=== PATIENT | male | born 1970 | race Caucasian/White ===

== ENCOUNTER 2018-06-26 15:31 | Inpatient (IN) | payer OTHER ==
[2018-06-26 17:19] VITALS: BMI 20.5
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
[2018-06-26] MEDS ORDERED: MAG HYDROX/AL HYDROX/SIMETH 30 ML UNIT-DOSE CUP PO PRN (20:01)
[2018-06-26] MEDS ORDERED: MAGNESIUM CITRATE 300 ML BOTTLE PO PRN (20:01)
[2018-06-26] MEDS ORDERED: NICOTINE POLACRILEX 2 MG GUM BUC PRN (20:01)
[2018-06-26] MEDS ORDERED: IBUPROFEN 400 MG TABLET (FP) PO PRN (20:01)
[2018-06-26] MEDS ORDERED: MENTHOL/PHENOL 1 EACH UD MM PRN (20:01)
[2018-06-26] MEDS ORDERED: ACETAMINOPHEN 325 MG TABLET (FP) PO PRN (20:01)
[2018-06-26] MEDS ORDERED: METHADONE HCL 10 MG TABLET (FOR DETOX USE ONLY) PO ONE ×2 (20:01→23:00)
[2018-06-26] MEDS ORDERED: MAGNESIUM HYDROX 2400MG/30ML ORAL SUSPENSION 30 ML CUP PO PRN (20:01)
[2018-06-26] MEDS ORDERED: LOPERAMIDE HCL 2 MG CAPSULE PO PRN (20:01)
[2018-06-26] MEDS: THIAMINE HCL 100 MG TABLET (FP) PO SCH (22:00)
[2018-06-26] MEDS: diazePAM 5 MG TABLET PO PRN (22:00)
[2018-06-27 02:10] LABS: URINE APPEARANCE TURBID; URINE BILIRUBIN NEGATIVE (<2.0 mg/dL); URINE COLOR YELLOW; URINE GLUCOSE (UA) NEGATIVE (NEGATIVE); URINE KETONE NEGATIVE (NEGATIVE); URINE LEUK ESTERASE NEGATIVE (NEGATIVE); URINE NITRITE NEGATIVE (NEGATIVE); URINE PROTEIN NEGATIVE (NEGATIVE); URINE UROBILINOGEN NEGATIVE mg/dL (0.2-1.0)
[2018-06-27] MEDS: diazePAM 5 MG TABLET PO PRN ×3 (09:51→20:26)
[2018-06-27] MEDS: PRENATAL VITAMINS W/ FOLIC ACID TABLET (FP) PO SCH (09:52)
[2018-06-27] MEDS: NICOTINE 21 MG/24 HOURS TOPICAL PATCH TD SCH (09:52)
[2018-06-27] MEDS ORDERED: METHADONE HCL 10 MG TABLET (FOR DETOX USE ONLY) PO ONE (10:00)
[2018-06-27 10:22] LABS: HEMATOCRIT 37.7 % (35.4-49); HEMOGLOBIN 13.2 GM/dL (11.7-16.9); MCH 30.5 pg (25.7-33.7); MEAN PLT VOLUME 8.2 fl (7.5-11.1); PLATELET COUNT 331 K/MM3 (134-434); RBC 4.33 M/mm3 (4.00-5.60); RDW 13.5 % (11.9-15.9); WHITE BLOOD COUNT 6.4 K/mm3 (4.0-10.0)
[2018-06-27 10:35] LABS: ALBUMIN 3.1 g/dl (3.4-5.0); ALK PHOS 76 U/L (45-117); ANION GAP 8 MMOL/L (8-16); BILIRUBIN,TOTAL 0.2 mg/dL (0.2-1); BLOOD UREA NITROGEN 25 mg/dL (7-18); CALCIUM 8.6 mg/dL (8.5-10.1); CHLORIDE 104 mmol/L (98-107); CO2 31 mmol/L (21-32); GLUCOSE,RANDOM 85 mg/dL (74-106); POTASSIUM 4.3 mmol/L (3.5-5.1); SGOT/AST 18 U/L (15-37); SGPT/ALT 25 U/L (13-61); SODIUM 143 mmol/L (136-145); TOT PROT 6.7 g/dl (6.4-8.2)
--- NOTE | 2018-06-27 11:20 | PN ---
BHS COWS - Scale Resting Pulse: 0= DE 80 or Below Sweatin= Chills/Flushing Restless Observation: 1= Difficult to Sit Still Pupil Size: 1= Pupils >than Normal Bone or Joint Aches: 2= Severe Diffuse Aches Runny Nose/ Eye Tearin= Nasal Congestion GI Upset > 30mins: 1= Stomach Cramp Tremor Observation of Outstretched Hands: 1= Tremor Galva, Not Seen Yawning Observation: 1= 1-2x During Session Anxiety or Irritability: 2=Irritable/Anxious Goose Flesh Skin: 0=Smooth Skin COWS Score: 11 S Progress Note (SOAP) Subjective: sweat tremor restlessness irritable body aches joints pain Objective: 06/27/18 11:18 Vital Signs Temperature 96.1 F L 06/27/18 09:46 Pulse Rate 70 06/27/18 09:46 Respiratory Rate 18 06/27/18 09:46 Blood Pressure 98/67 06/27/18 09:46 O2 Sat by Pulse Oximetry (%) Laboratory Last Values WBC 6.4 K/mm3 (4.0-10.0) 06/27/18 07:50 RBC 4.33 M/mm3 (4.00-5.60) 06/27/18 07:50 Hgb 13.2 GM/dL (11.7-16.9) 06/27/18 07:50 Hct 37.7 % (35.4-49) 06/27/18 07:50 MCV 87.0 fl (80-96) 06/27/18 07:50 MCH 30.5 pg (25.7-33.7) 06/27/18 07:50 MCHC 35.0 g/dl (32.0-35.9) 06/27/18 07:50 RDW 13.5 % (11.9-15.9) 06/27/18 07:50 Plt Count 331 K/MM3 (134-434) 06/27/18 07:50 MPV 8.2 fl (7.5-11.1) 06/27/18 07:50 Sodium 143 mmol/L (136-145) 06/27/18 07:50 Potassium 4.3 mmol/L (3.5-5.1) 06/27/18 07:50 Chloride 104 mmol/L (98-107) 06/27/18 07:50 Carbon Dioxide 31 mmol/L (21-32) 06/27/18 07:50 Anion Gap 8 MMOL/L (8-16) 06/27/18 07:50 BUN 25 mg/dL (7-18) H 06/27/18 07:50 Creatinine 1.0 mg/dL (0.55-1.3) 06/27/18 07:50 Creat Clearance w eGFR > 60 (>60) 06/27/18 07:50 Random Glucose 85 mg/dL (74-106) 06/27/18 07:50 Calcium 8.6 mg/dL (8.5-10.1) 06/27/18 07:50 Total Bilirubin 0.2 mg/dL (0.2-1) 06/27/18 07:50 AST 18 U/L (15-37) 06/27/18 07:50 ALT 25 U/L (13-61) 06/27/18 07:50 Alkaline Phosphatase 76 U/L (45-117) 06/27/18 07:50 Total Protein 6.7 g/dl (6.4-8.2) 06/27/18 07:50 Albumin 3.1 g/dl (3.4-5.0) L 06/27/18 07:50 Urine Color Yellow 06/26/18 22:52 Urine Appearance Turbid 06/26/18 22:52 Urine pH 5.0 (5.0-8.0) 06/26/18 22:52 Ur Specific [place] 1.029 (1.010-1.035) 06/26/18 22:52 Urine Protein Negative (NEGATIVE) 06/26/18 22:52 Urine Glucose (UA) Negative (NEGATIVE) 06/26/18 22:52 Urine Ketones Negative (NEGATIVE) 06/26/18 22:52 Urine Blood Negative (NEGATIVE) 06/26/18 22:52 Urine Nitrite Negative (NEGATIVE) 06/26/18 22:52 Urine Bilirubin Negative (<2.0 mg/dL) 06/26/18 22:52 Urine Urobilinogen Negative mg/dL (0.2-1.0) 06/26/18 22:52 Ur Leukocyte Esterase Negative (NEGATIVE) 06/26/18 22:52 lab noted Assessment: 06/27/18 11:19 withdrawal sx Plan: continue detox increase oral fluid to 2 L daily
[2018-06-27] MEDS: PATIENT'S OWN MEDICATION (NON-FORMULARY) (Glecaprevir/Pibrentasvir [Mavyret 100-40 Mg Tabl PO SCH ×2 (13:06→17:17)
[2018-06-27] MEDS: MELATONIN 5 MG TABLETS PO PRN (22:19)
[2018-06-27] MEDS: THIAMINE HCL 100 MG TABLET (FP) PO SCH (22:19)
[2018-06-28] MEDS ORDERED: METHADONE HCL 5 MG TABLET (FOR DETOX USE ONLY) PO ONE (10:00)
[2018-06-28] MEDS: PRENATAL VITAMINS W/ FOLIC ACID TABLET (FP) PO SCH (10:30)
[2018-06-28] MEDS: diazePAM 5 MG TABLET PO PRN ×2 (10:30→22:12)
[2018-06-28] MEDS: NICOTINE 21 MG/24 HOURS TOPICAL PATCH TD SCH (10:31)
--- NOTE | 2018-06-28 11:55 | PN ---
BHS COWS - Scale Resting Pulse: 0= DE 80 or Below Sweatin= Chills/Flushing Restless Observation: 1= Difficult to Sit Still Pupil Size: 2= Moderately Dilated Bone or Joint Aches: 2= Severe Diffuse Aches Runny Nose/ Eye Tearin= None GI Upset > 30mins: 1= Stomach Cramp Tremor Observation of Outstretched Hands: 0= None Yawning Observation: 0= None Anxiety or Irritability: 2=Irritable/Anxious Goose Flesh Skin: 0=Smooth Skin COWS Score: 9 BHS Progress Note (SOAP) Subjective: PATIENT C/O CONSTIPATION, HOT/COLD FLASHES, SWEATING, ANXIETY AND RESTLESSNESS. Objective: 06/28/18 11:42 Vital Signs Temperature 97.0 F L 06/28/18 10:01 Pulse Rate 70 06/28/18 10:01 Respiratory Rate 19 06/28/18 10:01 Blood Pressure 100/63 06/28/18 10:01 O2 Sat by Pulse Oximetry (%) Laboratory Tests 06/26/18 06/27/18 06/27/18 22:52 07:50 07:50 WBC 6.4 RBC 4.33 Hgb 13.2 Hct 37.7 MCV 87.0 MCH 30.5 MCHC 35.0 RDW 13.5 Plt Count 331 MPV 8.2 Sodium Potassium Chloride Carbon Dioxide Anion Gap BUN Creatinine Creat Clearance w eGFR Random Glucose Calcium Total Bilirubin AST ALT Alkaline Phosphatase Total Protein Albumin Urine Color Yellow Urine Appearance Turbid Urine pH 5.0 Ur Specific [place] 1.029 Urine Protein Negative Urine Glucose (UA) Negative Urine Ketones Negative Urine Blood Negative Urine Nitrite Negative Urine Bilirubin Negative Urine Urobilinogen Negative Ur Leukocyte Esterase Negative RPR Titer HIV 1&2 Antibody Screen Negative HIV P24 Antigen Negative 06/27/18 06/27/18 07:50 07:50 WBC RBC Hgb Hct MCV MCH MCHC RDW Plt Count MPV Sodium 143 Potassium 4.3 Chloride 104 Carbon Dioxide 31 Anion Gap 8 BUN 25 H Creatinine 1.0 Creat Clearance w eGFR > 60 Random Glucose 85 Calcium 8.6 Total Bilirubin 0.2 AST 18 ALT 25 Alkaline Phosphatase 76 Total Protein 6.7 Albumin 3.1 L Urine Color Urine Appearance Urine pH Ur Specific [place] Urine Protein Urine Glucose (UA) Urine Ketones Urine Blood Urine Nitrite Urine Bilirubin Urine Urobilinogen Ur Leukocyte Esterase RPR Titer Nonreactive HIV 1&2 Antibody Screen HIV P24 Antigen PE: SKIN WARM, +FACIAL MOISTURE ALERT AND ORIENTED X 3 EXT FULL ROM, AMB AD ОЛЬГА ANXIOUS/RESTLESS Assessment: 06/28/18 11:55 WITHDRAWAL SX Plan: CONTINUE DETOX ENCOURAGE ORAL FLUIDS CONTINUE TO MONITOR
[2018-06-28] MEDS: PATIENT'S OWN MEDICATION (NON-FORMULARY) (Glecaprevir/Pibrentasvir [Mavyret 100-40 Mg Tabl PO SCH (18:49)
[2018-06-28] MEDS: MELATONIN 5 MG TABLETS PO PRN (22:12)
[2018-06-28] MEDS: THIAMINE HCL 100 MG TABLET (FP) PO SCH (22:12)
[2018-06-29] MEDS ORDERED: METHADONE HCL 5 MG TABLET (FOR DETOX USE ONLY) PO ONE (10:00)
[2018-06-29] MEDS: NICOTINE 21 MG/24 HOURS TOPICAL PATCH TD SCH (10:32)
[2018-06-29] MEDS: PRENATAL VITAMINS W/ FOLIC ACID TABLET (FP) PO SCH (10:32)
[2018-06-29] MEDS: diazePAM 5 MG TABLET PO PRN (10:32)
--- NOTE | 2018-06-29 15:45 | PN ---
BHS Progress Note (SOAP) Subjective: sleep disturbance sweats Objective: 06/29/18 15:43 A & O x 3 No acute distress Vital Signs Temperature 97.0 F L 06/29/18 14:00 Pulse Rate 74 06/29/18 14:00 Respiratory Rate 18 06/29/18 14:00 Blood Pressure 108/67 06/29/18 14:00 O2 Sat by Pulse Oximetry (%) Assessment: 06/29/18 15:44 Withdrawal sx Plan: Continue detox
[2018-06-29] MEDS: PATIENT'S OWN MEDICATION (NON-FORMULARY) (Glecaprevir/Pibrentasvir [Mavyret 100-40 Mg Tabl PO SCH (17:27)
[2018-06-29] MEDS: THIAMINE HCL 100 MG TABLET (FP) PO SCH (22:06)
[2018-06-29] MEDS: MELATONIN 5 MG TABLETS PO PRN (22:07)
[2018-06-30] MEDS ORDERED: METHADONE HCL 10 MG TABLET (FOR DETOX USE ONLY) PO ONE (10:00)
[2018-06-30] MEDS: NICOTINE 21 MG/24 HOURS TOPICAL PATCH TD SCH (10:16)
[2018-06-30] MEDS: PRENATAL VITAMINS W/ FOLIC ACID TABLET (FP) PO SCH (10:16)
--- NOTE | 2018-06-30 14:55 | PN ---
BHS Progress Note (SOAP) Subjective: Sweating, interrupted sleep Objective: 06/30/18 14:53 Last Vital Signs Temp Pulse Resp BP Pulse Ox 97.8 F 85 18 113/65 06/30/18 13:39 06/30/18 13:39 06/30/18 13:39 06/30/18 13:39 Laboratory Tests 06/26/18 06/27/18 06/27/18 22:52 07:50 07:50 WBC 6.4 RBC 4.33 Hgb 13.2 Hct 37.7 MCV 87.0 MCH 30.5 MCHC 35.0 RDW 13.5 Plt Count 331 MPV 8.2 Sodium Potassium Chloride Carbon Dioxide Anion Gap BUN Creatinine Creat Clearance w eGFR Random Glucose Calcium Total Bilirubin AST ALT Alkaline Phosphatase Total Protein Albumin Urine Color Yellow Urine Appearance Turbid Urine pH 5.0 Ur Specific [place] 1.029 Urine Protein Negative Urine Glucose (UA) Negative Urine Ketones Negative Urine Blood Negative Urine Nitrite Negative Urine Bilirubin Negative Urine Urobilinogen Negative Ur Leukocyte Esterase Negative RPR Titer HIV 1&2 Antibody Screen Negative HIV P24 Antigen Negative 06/27/18 06/27/18 07:50 07:50 WBC RBC Hgb Hct MCV MCH MCHC RDW Plt Count MPV Sodium 143 Potassium 4.3 Chloride 104 Carbon Dioxide 31 Anion Gap 8 BUN 25 H Creatinine 1.0 Creat Clearance w eGFR > 60 Random Glucose 85 Calcium 8.6 Total Bilirubin 0.2 AST 18 ALT 25 Alkaline Phosphatase 76 Total Protein 6.7 Albumin 3.1 L Urine Color Urine Appearance Urine pH Ur Specific [place] Urine Protein Urine Glucose (UA) Urine Ketones Urine Blood Urine Nitrite Urine Bilirubin Urine Urobilinogen Ur Leukocyte Esterase RPR Titer Nonreactive HIV 1&2 Antibody Screen HIV P24 Antigen Labs reviewed: bun 25 Assessment: 06/30/18 14:53 Withdrawal symptoms Noted with azotemia Plan: Continue detox Azotemia: encouraged PO water intake Patient scheduled for discharge tomorrow
[2018-06-30] MEDS: PATIENT'S OWN MEDICATION (NON-FORMULARY) (Glecaprevir/Pibrentasvir [Mavyret 100-40 Mg Tabl PO SCH (17:27)
[2018-06-30] MEDS: MELATONIN 5 MG TABLETS PO PRN (22:02)
[2018-06-30] MEDS: THIAMINE HCL 100 MG TABLET (FP) PO SCH (22:02)
[2018-07-01] MEDS ORDERED: METHADONE HCL 5 MG TABLET (FOR DETOX USE ONLY) PO ONE (06:00)
[2018-07-01 06:19] VITALS: BP 110/63; PULSE 65; TEMP 96.7
[2018-07-01] MEDS: NICOTINE 21 MG/24 HOURS TOPICAL PATCH TD SCH (09:05)
[2018-07-01] MEDS: PRENATAL VITAMINS W/ FOLIC ACID TABLET (FP) PO SCH (09:05)
--- NOTE | 2018-07-01 11:26 | DS ---
[facility] Detox Discharge Summary Admission Date: 06/26/18 Discharge Date: 07/01/18 - History Present History: Opioid Dependence Additional Comments: 47 years old male admitted on 06/26/18 on opiate withdrawal sx completed opiate detox regimen tolerated well denies opiate withdrawal sx alert oriented x 3 no acute distress aftercare [facility] - Physical Exam Results Vital Signs: Vital Signs Temperature 96.7 F L 07/01/18 06:17 Pulse Rate 65 07/01/18 06:17 Respiratory Rate 16 07/01/18 06:17 Blood Pressure 110/63 07/01/18 06:17 O2 Sat by Pulse Oximetry (%) Pertinent Admission Physical Exam Findings: opiate withdrawal sx Vital Signs Temperature 96.7 F L 07/01/18 06:17 Pulse Rate 65 07/01/18 06:17 Respiratory Rate 16 07/01/18 06:17 Blood Pressure 110/63 07/01/18 06:17 O2 Sat by Pulse Oximetry (%) Laboratory Last Values WBC 6.4 K/mm3 (4.0-10.0) 06/27/18 07:50 RBC 4.33 M/mm3 (4.00-5.60) 06/27/18 07:50 Hgb 13.2 GM/dL (11.7-16.9) 06/27/18 07:50 Hct 37.7 % (35.4-49) 06/27/18 07:50 MCV 87.0 fl (80-96) 06/27/18 07:50 MCH 30.5 pg (25.7-33.7) 06/27/18 07:50 MCHC 35.0 g/dl (32.0-35.9) 06/27/18 07:50 RDW 13.5 % (11.9-15.9) 06/27/18 07:50 Plt Count 331 K/MM3 (134-434) 06/27/18 07:50 MPV 8.2 fl (7.5-11.1) 06/27/18 07:50 Sodium 143 mmol/L (136-145) 06/27/18 07:50 Potassium 4.3 mmol/L (3.5-5.1) 06/27/18 07:50 Chloride 104 mmol/L (98-107) 06/27/18 07:50 Carbon Dioxide 31 mmol/L (21-32) 06/27/18 07:50 Anion Gap 8 MMOL/L (8-16) 06/27/18 07:50 BUN 25 mg/dL (7-18) H 06/27/18 07:50 Creatinine 1.0 mg/dL (0.55-1.3) 06/27/18 07:50 Creat Clearance w eGFR > 60 (>60) 06/27/18 07:50 Random Glucose 85 mg/dL (74-106) 06/27/18 07:50 Calcium 8.6 mg/dL (8.5-10.1) 06/27/18 07:50 Total Bilirubin 0.2 mg/dL (0.2-1) 06/27/18 07:50 AST 18 U/L (15-37) 06/27/18 07:50 ALT 25 U/L (13-61) 06/27/18 07:50 Alkaline Phosphatase 76 U/L (45-117) 06/27/18 07:50 Total Protein 6.7 g/dl (6.4-8.2) 06/27/18 07:50 Albumin 3.1 g/dl (3.4-5.0) L 06/27/18 07:50 Urine Color Yellow 06/26/18 22:52 Urine Appearance Turbid 06/26/18 22:52 Urine pH 5.0 (5.0-8.0) 06/26/18 22:52 Ur Specific [place] 1.029 (1.010-1.035) 06/26/18 22:52 Urine Protein Negative (NEGATIVE) 06/26/18 22:52 Urine Glucose (UA) Negative (NEGATIVE) 06/26/18 22:52 Urine Ketones Negative (NEGATIVE) 06/26/18 22:52 Urine Blood Negative (NEGATIVE) 06/26/18 22:52 Urine Nitrite Negative (NEGATIVE) 06/26/18 22:52 Urine Bilirubin Negative (<2.0 mg/dL) 06/26/18 22:52 Urine Urobilinogen Negative mg/dL (0.2-1.0) 06/26/18 22:52 Ur Leukocyte Esterase Negative (NEGATIVE) 06/26/18 22:52 RPR Titer Nonreactive (NONREACTIVE) 06/27/18 07:50 HIV 1&2 Antibody Screen Negative 06/27/18 07:50 HIV P24 Antigen Negative 06/27/18 07:50 lab noted - Treatment Hospital Course: Detox Protocol Followed, Detoxed Safely, Responded well, Discharged Condition Good, Rehab Referral Accepted Patient has Accepted a Rehab Referral to: [facility] - Medication Discharge Medications: Ambulatory Orders Glecaprevir/Pibrentasvir [Mavyret 100-40 mg Tablet] 3 each PO DAILY 06/26/18 - Diagnosis (1) Opioid dependence with withdrawal Status: Acute (2) Hepatitis C Status: Chronic Qualifiers: Viral hepatitis chronicity: chronic Hepatic coma status: without hepatic coma Qualified Code(s): B18.2 - Chronic viral hepatitis C (3) Nicotine dependence, uncomplicated Status: Acute Qualifiers: Nicotine product type: cigarettes Qualified Code(s): F17.210 - Nicotine dependence, cigarettes, uncomplicated - AMA Did Patient Leave Against Medical Advice: No
== END 2018-07-01 09:00 | disposition home or self-care (01) | DRG 773 ==
LOC: YASAS 15:31 → Y3N 18:43
PROVIDERS: ADMIT Neuromusculoskeletal Medicine & OMM; ATTEND Neuromusculoskeletal Medicine & OMM
PROC: HZ2ZZZZ Detoxification Services for Substance Abuse Treatment (ICD-10-PCS; principal; 2018-06-26)
DX: F11.23 Opioid dependence with withdrawal (principal); F14.20 Cocaine dependence, uncomplicated; F12.10 Cannabis abuse, uncomplicated; F17.210 Nicotine dependence, cigarettes, uncomplicated; B18.2 Chronic viral hepatitis C; R79.89 Other specified abnormal findings of blood chemistry; M54.5 Low back pain; G89.29 Other chronic pain; Z91.013 Allergy to seafood
CPT/HCPCS: 36415; 80053; 81003; 85027; 86593; 87389

== ENCOUNTER 2018-11-26 10:16 | Inpatient (IN) | payer OTHER ==
[2018-11-26 12:00] VITALS: BMI 22.3
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
[2018-11-26] MEDS ORDERED: MAGNESIUM CITRATE 300 ML BOTTLE PO PRN (13:32)
[2018-11-26] MEDS ORDERED: IBUPROFEN 400 MG TABLET (FP) PO PRN (13:32)
[2018-11-26] MEDS ORDERED: cloNIDine HCL 0.1 MG TABLET PO PRN (13:32)
[2018-11-26] MEDS ORDERED: hydrOXYzine PAMOATE 25 MG CAPSULE (FP) PO PRN (13:32)
[2018-11-26] MEDS ORDERED: BISMUTH SUBSALICYLATE 524 MG/30 ML UD PO PRN (13:32)
[2018-11-26] MEDS ORDERED: METHOCARBAMOL 500 MG TABLET PO PRN (13:32)
[2018-11-26] MEDS ORDERED: MENTHOL/PHENOL 1 EACH UD MM PRN (13:32)
[2018-11-26] MEDS ORDERED: MAG HYDROX/AL HYDROX/SIMETH 30 ML UNIT-DOSE CUP PO PRN (13:32)
[2018-11-26] MEDS ORDERED: MAGNESIUM HYDROX 2400MG/30ML ORAL SUSPENSION 30 ML CUP PO PRN (13:32)
[2018-11-26] MEDS ORDERED: ACETAMINOPHEN 325 MG TABLET (FP) PO PRN ×2 (13:32)
[2018-11-26] MEDS ORDERED: chlordiazePOXIDE HCL 25 MG CAPSULE PO PRN (13:39)
[2018-11-26] MEDS ORDERED: METHADONE HCL 10 MG TABLET (FOR DETOX USE ONLY) PO ONE ×2 (14:00→23:00)
[2018-11-26] MEDS: NICOTINE 21 MG/24 HOURS TOPICAL PATCH TD SCH (14:48)
[2018-11-26] MEDS: chlordiazePOXIDE HCL 25 MG CAPSULE PO SCH ×2 (17:19→22:14)
[2018-11-26] MEDS: THIAMINE HCL 100 MG TABLET (FP) PO SCH (22:13)
[2018-11-26] MEDS: MELATONIN 5 MG TABLETS PO PRN (22:14)
[2018-11-26] MEDS: NICOTINE POLACRILEX 2 MG GUM BUC PRN (22:19)
[2018-11-26 23:38] LABS: HEMATOCRIT 44.4 % (35.4-49); HEMOGLOBIN 14.7 GM/dL (11.7-16.9); MCH 29.3 pg (25.7-33.7); MEAN CELL VOLUME 88.6 fl (80-96); MEAN PLT VOLUME 8.6 fl (7.5-11.1); PLATELET COUNT 260 K/MM3 (134-434); RBC 5.01 M/mm3 (4.00-5.60); RDW 13.6 % (11.9-15.9); WHITE BLOOD COUNT 8.7 K/mm3 (4.0-10.0)
[2018-11-27 00:06] LABS: ALK PHOS 72 U/L (45-117); ANION GAP 5 MMOL/L (8-16); BILIRUBIN,TOTAL 0.6 mg/dL (0.2-1); BLOOD UREA NITROGEN 14 mg/dL (7-18); CALCIUM 9.8 mg/dL (8.5-10.1); CHLORIDE 102 mmol/L (98-107); CO2 30 mmol/L (21-32); GLUCOSE,RANDOM 83 mg/dL (74-106); POTASSIUM 3.8 mmol/L (3.5-5.1); SGOT/AST 17 U/L (15-37); SGPT/ALT 28 U/L (13-61); SODIUM 137 mmol/L (136-145); TOT PROT 7.9 g/dl (6.4-8.2)
[2018-11-27] MEDS: chlordiazePOXIDE HCL 25 MG CAPSULE PO SCH ×4 (05:27→22:10)
[2018-11-27] MEDS ORDERED: METHADONE HCL 10 MG TABLET (FOR DETOX USE ONLY) PO ONE (10:00)
--- NOTE | 2018-11-27 10:02 | PN ---
S CIWA - CIWA Score Nausea/Vomitin-Mild Nausea/No Vomiting Muscle Tremors: 4-Moderate,w/Arms Extend Anxiety: 3 Agitation: 2 Paroxysmal Sweats: 1-Minimal Palms Moist Orientation: 1-Uncertain about Date Tacttile Disturbances: 0-None Auditory Disturbances: 0-None Visual Disturbances: 0-None Headache: 1-Very Mild CIWA-Ar Total Score: 13 [facility] COWS - Scale Resting Pulse: 0= [place] 80 or Below Sweatin= Chills/Flushing Restless Observation: 0= Sits Still Pupil Size: 0= Normal to Room Light Bone or Joint Aches: 2= Severe Diffuse Aches Runny Nose/ Eye Tearin= Nasal Congestion GI Upset > 30mins: 2= Nausea/Diarrhea Tremor Observation of Outstretched Hands: 2= Slight Tremor Visible Yawning Observation: 2= >3x During Session Anxiety or Irritability: 2=Irritable/Anxious Goose Flesh Skin: 0=Smooth Skin COWS Score: 12 [facility] Progress Note (SOAP) Subjective: less body aches after methadone dosage discuss medication assisted treatment program Objective: 11/27/18 10:01 Vital Signs Temperature 97.1 F L 11/27/18 09:27 Pulse Rate 65 11/27/18 09:27 Respiratory Rate 18 11/27/18 09:27 Blood Pressure 104/64 11/27/18 09:27 O2 Sat by Pulse Oximetry (%) Laboratory Last Values WBC 8.7 K/mm3 (4.0-10.0) 11/26/18 13:20 RBC 5.01 M/mm3 (4.00-5.60) 11/26/18 13:20 Hgb 14.7 GM/dL (11.7-16.9) 11/26/18 13:20 Hct 44.4 % (35.4-49) D 11/26/18 13:20 MCV 88.6 fl (80-96) 11/26/18 13:20 MCH 29.3 pg (25.7-33.7) 11/26/18 13:20 MCHC 33.0 g/dl (32.0-35.9) 11/26/18 13:20 RDW 13.6 % (11.9-15.9) 11/26/18 13:20 Plt Count 260 K/MM3 (134-434) D 11/26/18 13:20 MPV 8.6 fl (7.5-11.1) 11/26/18 13:20 Sodium 137 mmol/L (136-145) 11/26/18 13:20 Potassium 3.8 mmol/L (3.5-5.1) 11/26/18 13:20 Chloride 102 mmol/L (98-107) 11/26/18 13:20 Carbon Dioxide 30 mmol/L (21-32) 11/26/18 13:20 Anion Gap 5 MMOL/L (8-16) L 11/26/18 13:20 BUN 14 mg/dL (7-18) 11/26/18 13:20 Creatinine 1.0 mg/dL (0.55-1.3) 11/26/18 13:20 Creat Clearance w eGFR 80.09 (>60) 11/26/18 13:20 Random Glucose 83 mg/dL (74-106) 11/26/18 13:20 Calcium 9.8 mg/dL (8.5-10.1) 11/26/18 13:20 Total Bilirubin 0.6 mg/dL (0.2-1) 11/26/18 13:20 AST 17 U/L (15-37) 11/26/18 13:20 ALT 28 U/L (13-61) 11/26/18 13:20 Alkaline Phosphatase 72 U/L (45-117) 11/26/18 13:20 Total Protein 7.9 g/dl (6.4-8.2) 11/26/18 13:20 Albumin 4.0 g/dl (3.4-5.0) 11/26/18 13:20 lab noted Assessment: 11/27/18 10:01 alcohol and opiate withdrawal sx Plan: continue detox
[2018-11-27] MEDS: PRENATAL VITAMINS W/ FOLIC ACID TABLET (FP) PO SCH (10:27)
[2018-11-27] MEDS: NICOTINE 21 MG/24 HOURS TOPICAL PATCH TD SCH (10:28)
[2018-11-27] MEDS: NICOTINE POLACRILEX 2 MG GUM BUC PRN ×3 (10:31→22:10)
[2018-11-27 15:01] LABS: URINE APPEARANCE CLEAR; URINE BILIRUBIN NEGATIVE (NEGATIVE); URINE COLOR YELLOW; URINE GLUCOSE (UA) NEGATIVE (NEGATIVE); URINE KETONE NEGATIVE (NEGATIVE); URINE LEUK ESTERASE NEGATIVE (NEGATIVE); URINE NITRITE NEGATIVE (NEGATIVE); URINE PROTEIN NEGATIVE (NEGATIVE); URINE UROBILINOGEN 0.2 mg/dL (0.2-1.0)
[2018-11-27] MEDS: THIAMINE HCL 100 MG TABLET (FP) PO SCH (22:09)
[2018-11-27] MEDS: MELATONIN 5 MG TABLETS PO PRN (22:10)
[2018-11-28] MEDS: chlordiazePOXIDE HCL 25 MG CAPSULE PO SCH ×2 (05:10→10:41)
[2018-11-28] MEDS ORDERED: METHADONE HCL 10 MG TABLET (FOR DETOX USE ONLY) PO ONE (10:00)
[2018-11-28] MEDS: PRENATAL VITAMINS W/ FOLIC ACID TABLET (FP) PO SCH (10:41)
[2018-11-28] MEDS: NICOTINE 21 MG/24 HOURS TOPICAL PATCH TD SCH (10:42)
--- NOTE | 2018-11-28 13:16 | PN ---
S CIWA - CIWA Score Nausea/Vomitin-Mild Nausea/No Vomiting Muscle Tremors: 3 Anxiety: 1-Mildly Anxious Agitation: 2 Paroxysmal Sweats: 1-Minimal Palms Moist Orientation: 0-Oriented Tacttile Disturbances: 0-None Auditory Disturbances: 0-None Visual Disturbances: 0-None Headache: 1-Very Mild CIWA-Ar Total Score: 9 BHS COWS - Scale Resting Pulse: 1= [place] 81-100 Sweatin= Chills/Flushing Restless Observation: 0= Sits Still Pupil Size: 0= Normal to Room Light Bone or Joint Aches: 1= Mild Discomfort Runny Nose/ Eye Tearin= Nasal Congestion GI Upset > 30mins: 1= Stomach Cramp Tremor Observation of Outstretched Hands: 1= Tremor [place], Not Seen Yawning Observation: 2= >3x During Session Anxiety or Irritability: 1=Feels Anxious/Irritable Goose Flesh Skin: 0=Smooth Skin COWS Score: 9 S Progress Note (SOAP) Subjective: patient wants to go to [facility] for rehab optimistic about aftercare plan Objective: 11/28/18 13:15 Vital Signs Temperature 97.8 F 11/28/18 09:46 Pulse Rate 91 H 11/28/18 09:46 Respiratory Rate 20 11/28/18 09:46 Blood Pressure 107/71 11/28/18 09:46 O2 Sat by Pulse Oximetry (%) Laboratory Last Values WBC 8.7 K/mm3 (4.0-10.0) 11/26/18 13:20 RBC 5.01 M/mm3 (4.00-5.60) 11/26/18 13:20 Hgb 14.7 GM/dL (11.7-16.9) 11/26/18 13:20 Hct 44.4 % (35.4-49) D 11/26/18 13:20 MCV 88.6 fl (80-96) 11/26/18 13:20 MCH 29.3 pg (25.7-33.7) 11/26/18 13:20 MCHC 33.0 g/dl (32.0-35.9) 11/26/18 13:20 RDW 13.6 % (11.9-15.9) 11/26/18 13:20 Plt Count 260 K/MM3 (134-434) D 11/26/18 13:20 MPV 8.6 fl (7.5-11.1) 11/26/18 13:20 Sodium 137 mmol/L (136-145) 11/26/18 13:20 Potassium 3.8 mmol/L (3.5-5.1) 11/26/18 13:20 Chloride 102 mmol/L (98-107) 11/26/18 13:20 Carbon Dioxide 30 mmol/L (21-32) 11/26/18 13:20 Anion Gap 5 MMOL/L (8-16) L 11/26/18 13:20 BUN 14 mg/dL (7-18) 11/26/18 13:20 Creatinine 1.0 mg/dL (0.55-1.3) 11/26/18 13:20 Creat Clearance w eGFR 80.09 (>60) 11/26/18 13:20 Random Glucose 83 mg/dL (74-106) 11/26/18 13:20 Calcium 9.8 mg/dL (8.5-10.1) 11/26/18 13:20 Total Bilirubin 0.6 mg/dL (0.2-1) 11/26/18 13:20 AST 17 U/L (15-37) 11/26/18 13:20 ALT 28 U/L (13-61) 11/26/18 13:20 Alkaline Phosphatase 72 U/L (45-117) 11/26/18 13:20 Total Protein 7.9 g/dl (6.4-8.2) 11/26/18 13:20 Albumin 4.0 g/dl (3.4-5.0) 11/26/18 13:20 Urine Color Yellow 11/27/18 01:05 Urine Appearance Clear 11/27/18 01:05 Urine pH 5.0 (5.0-8.0) 11/27/18 01:05 Ur Specific [place] 1.017 (1.010-1.035) 11/27/18 01:05 Urine Protein Negative (NEGATIVE) 11/27/18 01:05 Urine Glucose (UA) Negative (NEGATIVE) 11/27/18 01:05 Urine Ketones Negative (NEGATIVE) 11/27/18 01:05 Urine Blood Negative (NEGATIVE) 11/27/18 01:05 Urine Nitrite Negative (NEGATIVE) 11/27/18 01:05 Urine Bilirubin Negative (NEGATIVE) 11/27/18 01:05 Urine Urobilinogen 0.2 mg/dL (0.2-1.0) 11/27/18 01:05 Ur Leukocyte Esterase Negative (NEGATIVE) 11/27/18 01:05 RPR Titer Nonreactive (NONREACTIVE) 11/26/18 13:20 lab noted Assessment: 11/28/18 13:16 withdrawal sx Plan: continue detox
[2018-11-28] MEDS: NICOTINE POLACRILEX 2 MG GUM BUC PRN ×2 (16:02→19:42)
[2018-11-28] MEDS ORDERED: chlordiazePOXIDE HCL 10 MG CAPSULE PO PRN (17:00)
[2018-11-28] MEDS: chlordiazePOXIDE HCL 10 MG CAPSULE PO SCH ×2 (17:31→22:16)
[2018-11-28] MEDS: THIAMINE HCL 100 MG TABLET (FP) PO SCH (22:16)
[2018-11-28] MEDS: MELATONIN 5 MG TABLETS PO PRN (22:16)
[2018-11-29] MEDS: chlordiazePOXIDE HCL 10 MG CAPSULE PO SCH ×3 (05:48→17:03)
[2018-11-29] MEDS ORDERED: METHADONE HCL 10 MG TABLET (FOR DETOX USE ONLY) ONE (09:01)
[2018-11-29] MEDS ORDERED: METHADONE HCL 5 MG TABLET (FOR DETOX USE ONLY) ONE (09:02)
[2018-11-29] MEDS ORDERED: METHADONE (DETOX) 10 MG, METHADONE (DETOX) 5 MG PO ONE (10:00)
[2018-11-29] MEDS ORDERED: METHADONE HCL 10 MG TABLET (FOR DETOX USE ONLY) PO ONE (10:00)
[2018-11-29] MEDS: PRENATAL VITAMINS W/ FOLIC ACID TABLET (FP) PO SCH (10:18)
[2018-11-29] MEDS: NICOTINE 21 MG/24 HOURS TOPICAL PATCH TD SCH (10:18)
--- NOTE | 2018-11-29 15:42 | PN ---
[facility] CIWA - CIWA Score Nausea/Vomitin-No Nausea/No Vomiting Muscle Tremors: 2 Anxiety: 0-No Anxiety, at Ease Agitation: 0-Normal Activity Paroxysmal Sweats: 3 Orientation: 0-Oriented Tacttile Disturbances: 2-Mild Itch/Numbness/Burn Auditory Disturbances: 0-None Visual Disturbances: 2-Mild Sensitivity Headache: 0-None Present CIWA-Ar Total Score: 9 S COWS - Scale Resting Pulse: 1= [place] 81-100 Sweatin= Chills/Flushing Restless Observation: 1= Difficult to Sit Still Pupil Size: 0= Normal to Room Light Bone or Joint Aches: 0= None Runny Nose/ Eye Tearin= None GI Upset > 30mins: 0= None Tremor Observation of Outstretched Hands: 0= None Yawning Observation: 2= >3x During Session Anxiety or Irritability: 2=Irritable/Anxious Goose Flesh Skin: 0=Smooth Skin COWS Score: 7 S Progress Note (SOAP) Subjective: Sweating, Fatigue. Objective: PATIENT A & O X 2 (UNCERTAIN ABOUT CURRENT DAY / DATE). PATIENT OBSERVED AMBULATING ON UNIT UNASSISTED. IN NO ACUTE DISTRESS. 11/29/18 15:46 Vital Signs Temperature 96.1 F L 11/29/18 13:11 Pulse Rate 74 11/29/18 13:11 Respiratory Rate 18 11/29/18 13:11 Blood Pressure 92/58 L 11/29/18 13:11 O2 Sat by Pulse Oximetry (%) Laboratory Tests 11/26/18 11/26/18 11/26/18 13:20 13:20 13:20 WBC 8.7 RBC 5.01 Hgb 14.7 Hct 44.4 D MCV 88.6 MCH 29.3 MCHC 33.0 RDW 13.6 Plt Count 260 D MPV 8.6 Sodium 137 Potassium 3.8 Chloride 102 Carbon Dioxide 30 Anion Gap 5 L BUN 14 Creatinine 1.0 Creat Clearance w eGFR 80.09 Random Glucose 83 Calcium 9.8 Total Bilirubin 0.6 AST 17 ALT 28 Alkaline Phosphatase 72 Total Protein 7.9 Albumin 4.0 Urine Color Urine Appearance Urine pH Ur Specific [place] Urine Protein Urine Glucose (UA) Urine Ketones Urine Blood Urine Nitrite Urine Bilirubin Urine Urobilinogen Ur Leukocyte Esterase RPR Titer Nonreactive 11/27/18 01:05 WBC RBC Hgb Hct MCV MCH MCHC RDW Plt Count MPV Sodium Potassium Chloride Carbon Dioxide Anion Gap BUN Creatinine Creat Clearance w eGFR Random Glucose Calcium Total Bilirubin AST ALT Alkaline Phosphatase Total Protein Albumin Urine Color Yellow Urine Appearance Clear Urine pH 5.0 Ur Specific [place] 1.017 Urine Protein Negative Urine Glucose (UA) Negative Urine Ketones Negative Urine Blood Negative Urine Nitrite Negative Urine Bilirubin Negative Urine Urobilinogen 0.2 Ur Leukocyte Esterase Negative RPR Titer LABS NOTED. Assessment: 11/29/18 15:46 WITHDRAWAL SYMPTOMS. Plan: CONTINUE DETOX. INCREASE DAILY PO FLUID INTAKE.
[2018-11-29] MEDS: NICOTINE POLACRILEX 2 MG GUM BUC PRN (17:03)
[2018-11-29] MEDS: THIAMINE HCL 100 MG TABLET (FP) PO SCH (21:43)
[2018-11-29] MEDS: MELATONIN 5 MG TABLETS PO PRN (21:43)
[2018-11-30] MEDS ORDERED: METHADONE HCL 5 MG TABLET (FOR DETOX USE ONLY) PO ONE (06:00)
[2018-11-30] MEDS: chlordiazePOXIDE HCL 10 MG CAPSULE PO SCH (06:27)
[2018-11-30] MEDS ORDERED: METHADONE HCL 10 MG TABLET (FOR DETOX USE ONLY) PO ONE (10:00)
[2018-11-30] MEDS: NICOTINE 21 MG/24 HOURS TOPICAL PATCH TD SCH (11:21)
[2018-11-30] MEDS: PRENATAL VITAMINS W/ FOLIC ACID TABLET (FP) PO SCH (11:24)
[2018-11-30 13:33] VITALS: BP 104/70; PULSE 71; TEMP 96.9
--- NOTE | 2018-11-30 15:02 | PN ---
S CIWA - CIWA Score Nausea/Vomitin-No Nausea/No Vomiting Muscle Tremors: None Anxiety: 0-No Anxiety, at Ease Agitation: 1-Slight > Activity Paroxysmal Sweats: No Perspiration Orientation: 0-Oriented Tacttile Disturbances: 1-Very Mild Itch/Numbness Auditory Disturbances: 0-None Visual Disturbances: 0-None Headache: 0-None Present CIWA-Ar Total Score: 2 S COWS - Scale Resting Pulse: 0= [place] 80 or Below Sweatin= No chills or Flushing Restless Observation: 0= Sits Still Pupil Size: 0= Normal to Room Light Bone or Joint Aches: 0= None Runny Nose/ Eye Tearin= None GI Upset > 30mins: 0= None Tremor Observation of Outstretched Hands: 0= None Yawning Observation: 1= 1-2x During Session Anxiety or Irritability: 0= None Goose Flesh Skin: 0=Smooth Skin COWS Score: 1 [facility] Progress Note (SOAP) Subjective: Patient reports that current Withdrawal / Detox symptoms are minimal in degree and that he feels well overall. Objective: PATIENT A & O X 3, OBSERVED AMBULATING ON UNIT UNASSISTED. IN NO ACUTE DISTRESS. 11/30/18 15:01 Vital Signs Temperature 96.9 F L 11/30/18 13:32 Pulse Rate 71 11/30/18 13:32 Respiratory Rate 18 11/30/18 13:32 Blood Pressure 104/70 11/30/18 13:32 O2 Sat by Pulse Oximetry (%) Laboratory Tests 11/26/18 11/26/18 11/26/18 13:20 13:20 13:20 WBC 8.7 RBC 5.01 Hgb 14.7 Hct 44.4 D MCV 88.6 MCH 29.3 MCHC 33.0 RDW 13.6 Plt Count 260 D MPV 8.6 Sodium 137 Potassium 3.8 Chloride 102 Carbon Dioxide 30 Anion Gap 5 L BUN 14 Creatinine 1.0 Creat Clearance w eGFR 80.09 Random Glucose 83 Calcium 9.8 Total Bilirubin 0.6 AST 17 ALT 28 Alkaline Phosphatase 72 Total Protein 7.9 Albumin 4.0 Urine Color Urine Appearance Urine pH Ur Specific [place] Urine Protein Urine Glucose (UA) Urine Ketones Urine Blood Urine Nitrite Urine Bilirubin Urine Urobilinogen Ur Leukocyte Esterase RPR Titer Nonreactive 11/27/18 01:05 WBC RBC Hgb Hct MCV MCH MCHC RDW Plt Count MPV Sodium Potassium Chloride Carbon Dioxide Anion Gap BUN Creatinine Creat Clearance w eGFR Random Glucose Calcium Total Bilirubin AST ALT Alkaline Phosphatase Total Protein Albumin Urine Color Yellow Urine Appearance Clear Urine pH 5.0 Ur Specific [place] 1.017 Urine Protein Negative Urine Glucose (UA) Negative Urine Ketones Negative Urine Blood Negative Urine Nitrite Negative Urine Bilirubin Negative Urine Urobilinogen 0.2 Ur Leukocyte Esterase Negative RPR Titer LABS NOTED. Assessment: 11/30/18 15:01 WITHDRAWAL SYMPTOMS. Plan: CONTINUE DETOX. PATIENT SCHEDULED FOR D/C TOMORROW.
--- NOTE | 2018-11-30 15:20 | DS ---
[facility] Detox Discharge Summary Admission Date: 11/26/18 Discharge Date: 11/30/18 - History Present History: Alcohol Dependence, Opioid Dependence Additional Comments: SINCE PATIENT DENIES CURRENT WITHDRAWAL / DETOX SYMPTOMS, HE WAS GRANTED AN EARLY DISCHARGER FROM DETOX UNIT. PATIENT WILL CONSIDER RETURNING TO APPLY FOR ADMISSION TO [facility] ([place], [place]) IN THE NEXT FEW DAYS. PATIENT ALSO ADVISED TO CONSIDER LOCAL 12-STEP / NA / AA OUTPATIENT SUPPORT GROUP PROGRAMS FOR AFTERCARE. PATIENT VERBALIZED UNDERSTANDING OF RECOMMENDATION. PATIENT WAS DISCHARGED FROM DETOX UNIT IN STABLE MEDICAL CONDITION. Pertinent Past History: Nicotine Dependence, Hep C, Chronic Low Back Pain, History of Chest Wound, Weight Loss, Dehydration, Depression. - Physical Exam Results Vital Signs: Vital Signs Temperature 96.9 F L 11/30/18 13:32 Pulse Rate 71 11/30/18 13:32 Respiratory Rate 18 11/30/18 13:32 Blood Pressure 104/70 11/30/18 13:32 O2 Sat by Pulse Oximetry (%) Pertinent Admission Physical Exam Findings: WITHDRAWAL SYMPTOMS. Laboratory Tests 11/26/18 11/26/18 11/26/18 13:20 13:20 13:20 WBC 8.7 RBC 5.01 Hgb 14.7 Hct 44.4 D MCV 88.6 MCH 29.3 MCHC 33.0 RDW 13.6 Plt Count 260 D MPV 8.6 Sodium 137 Potassium 3.8 Chloride 102 Carbon Dioxide 30 Anion Gap 5 L BUN 14 Creatinine 1.0 Creat Clearance w eGFR 80.09 Random Glucose 83 Calcium 9.8 Total Bilirubin 0.6 AST 17 ALT 28 Alkaline Phosphatase 72 Total Protein 7.9 Albumin 4.0 Urine Color Urine Appearance Urine pH Ur Specific [place] Urine Protein Urine Glucose (UA) Urine Ketones Urine Blood Urine Nitrite Urine Bilirubin Urine Urobilinogen Ur Leukocyte Esterase RPR Titer Nonreactive 11/27/18 01:05 WBC RBC Hgb Hct MCV MCH MCHC RDW Plt Count MPV Sodium Potassium Chloride Carbon Dioxide Anion Gap BUN Creatinine Creat Clearance w eGFR Random Glucose Calcium Total Bilirubin AST ALT Alkaline Phosphatase Total Protein Albumin Urine Color Yellow Urine Appearance Clear Urine pH 5.0 Ur Specific [place] 1.017 Urine Protein Negative Urine Glucose (UA) Negative Urine Ketones Negative Urine Blood Negative Urine Nitrite Negative Urine Bilirubin Negative Urine Urobilinogen 0.2 Ur Leukocyte Esterase Negative RPR Titer LABS NOTED. - Treatment Hospital Course: Detox Protocol Followed, Detoxed Safely, Responded well, Discharged Condition Good Patient has Accepted a Rehab Referral to: PT. WILL LIKELY RETURN TO APPLY FOR ADMISSION AT [facility] AT LATER DATE. - Diagnosis (1) Alcohol dependence with uncomplicated withdrawal Current Visit: Yes Status: Acute (2) Chronic low back pain Current Visit: Yes Status: Acute Qualifiers: Back pain laterality: unspecified Sciatica presence: unspecified whether sciatica present Qualified Code(s): M54.5 - Low back pain; G89.29 - Other chronic pain (3) Dehydration Current Visit: Yes Status: Acute (4) History of chest wound Current Visit: Yes Status: Acute (5) Low back pain Current Visit: Yes Status: Acute Qualifiers: Chronicity: unspecified Back pain laterality: unspecified Sciatica presence: unspecified whether sciatica present Qualified Code(s): M54.5 - Low back pain (6) Weight loss Current Visit: Yes Status: Acute (7) Opioid dependence with withdrawal Current Visit: Yes Status: Acute (8) Hepatitis C Current Visit: No Status: Chronic Qualifiers: Viral hepatitis chronicity: chronic Hepatic coma status: without hepatic coma Qualified Code(s): B18.2 - Chronic viral hepatitis C - AMA Did Patient Leave Against Medical Advice: No
[2018-12-01] MEDS ORDERED: METHADONE HCL 5 MG TABLET (FOR DETOX USE ONLY) PO ONE (06:00)
== END 2018-11-30 15:30 | disposition home or self-care (01) | DRG 773 ==
LOC: YASAS 10:16 → Y3N 13:44
PROVIDERS: ADMIT Surgery; ATTEND Surgery
PROC: HZ2ZZZZ Detoxification Services for Substance Abuse Treatment (ICD-10-PCS; principal; 2018-11-26)
DX: F11.23 Opioid dependence with withdrawal (principal); F10.230 Alcohol dependence with withdrawal, uncomplicated; F17.210 Nicotine dependence, cigarettes, uncomplicated; F32.9 Major depressive disorder, single episode, unspecified; B18.2 Chronic viral hepatitis C; M54.5 Low back pain; G89.29 Other chronic pain; E86.0 Dehydration; R63.4 Abnormal weight loss; Z68.22 Body mass index [BMI] 22.0-22.9, adult; Z91.013 Allergy to seafood; Z87.828 Personal history of other (healed) physical injury and trauma
CPT/HCPCS: 36415; 80053; 81003; 85027; 86593